=== PATIENT | female | born 1975 | race American Indian/Alaskan Native ===

== ENCOUNTER 2017-08-03 12:11 | Emergency (ER) | payer SELFPAY ==
[2017-08-03 13:09] LABS: Basophils % (Auto) 1.3 % (0.0-1.8); Eosinophils % (Auto) 2.3 % (0.0-4.3); Hematocrit 27.3 % (30.3-42.9); Hemoglobin 8.4 gm/dl (10.1-14.3); Mean Corpuscular HGB Conc 31 % (30-34); Mean Corpuscular Hemoglobin 22 pg (28-32); Mean Corpuscular Volume 71 fl (79-97); Platelet Count 334 K/mm3 (140-440); Red Blood Count 3.84 M/mm3 (3.65-5.03); Red Cell Distribution Width 17.1 % (13.2-15.2); White Blood Count 7.2 K/mm3 (4.5-11.0)
[2017-08-03 13:18] LABS: INR 0.95 (0.87-1.13)
[2017-08-03 13:26] LABS: Alanine Aminotransferase 8 units/L (7-56); Albumin 3.7 g/dL (3.9-5); Albumin/Globulin Ratio 1.1 %; Alkaline Phosphatase 52 units/L (35-129); Anion Gap 15 mmol/L; BUN/Creatinine Ratio 12.85; Blood Urea Nitrogen 9 mg/dL (7-17); Calcium 8.6 mg/dL (8.4-10.2); Carbon Dioxide 24 mmol/L (22-30); Glucose 99 mg/dL (65-100); Potassium 3.7 mmol/L (3.6-5.0); Sodium 138 mmol/L (137-145); Total Protein 7.1 g/dL (6.3-8.2)
[2017-08-03 20:03] VITALS: BP 127/56
--- NOTE | 2017-08-03 20:44 | Emergency Department Report ---
HPI - General Chief Complaint: Recheck/Abnormal Lab/Rx Time Seen by Provider: 08/03/17 20:22 - HPI HPI: This is a 42-year-old [place] female presents to the emergency department after she was sent in by her primary care clinic secondary to low hemoglobin/ anemia. She presents with some lab work done from the end of last month that showed her to have a hemoglobin of 8.7. The patient says that she does have some history of anemia in the past. She also has a history of HIV. She denies any chest pain, shortness of breath, headache, fever, weakness and only has a complaint of some occasional fatigue. She has not been taking anything for the anemia or her symptoms. She says that she does have a history of fibroids and is not currently bleeding but when she has her menstrual cycle she tends to have heavier bleeding at that time. ED Past Medical Hx - Past Medical History Previous Medical History?: Yes Additional medical history: HIV - Surgical History Additional Surgical History: - Social History Smoking Status: Never Smoker Substance Use Type: None - Medications Home Medications: Home Medications Medication Instructions Recorded Confirmed Last Taken Type Ferrous Sulfate [Feosol 325 MG tab] 325 mg PO BID #60 tablet 08/03/17 Unknown Rx ED Review of Systems ROS: Stated complaint: HEMONGLOBIN LOW Other details as noted in HPI Comment: All other systems reviewed and negative Constitutional: denies: chills, fever Eyes: denies: eye pain, eye discharge, vision change ENT: denies: ear pain, throat pain Respiratory: denies: cough, shortness of breath, wheezing Cardiovascular: denies: chest pain, palpitations Gastrointestinal: denies: abdominal pain, nausea, diarrhea Genitourinary: denies: urgency, dysuria, discharge Musculoskeletal: denies: back pain, joint swelling, arthralgia Skin: denies: rash, lesions Neurological: denies: headache, weakness, paresthesias Physical Exam - Physical Exam Vital Signs: Vital Signs 08/03/17 08/03/17 12:28 20:00 Temperature 97 F L 98.3 F Pulse Rate 77 74 Respiratory 20 18 Rate Blood Pressure 150/79 Blood Pressure 127/56 [Right] O2 Sat by Pulse 98 99 Oximetry Physical Exam: GENERAL: The patient is well-developed well-nourished. HENT: Normocephalic. Atraumatic. Patient has moist mucous membranes. EYES: Extraocular motions are intact. Pupils equal reactive to light bilaterally. NECK: Supple. Trachea is midline. CHEST/LUNGS: Clear to auscultation. There is no respiratory distress noted. HEART/CARDIOVASCULAR: Regular. There is no tachycardia. There is no gallop rub or murmur. ABDOMEN: Abdomen is soft, nontender. Patient has normal bowel sounds. There is no abdominal distention. SKIN: There is no rash. There is no edema. There is no diaphoresis. NEURO: The patient is awake, alert, and oriented. The patient is cooperative. The patient has no focal neurologic deficits. The patient has normal speech. MUSCULOSKELETAL: There is no tenderness or deformity. There is no limitation range of motion. There is no evidence of acute injury. Radial pulses +2 over 4 bilaterally. Cap refill less than 2 seconds. ED Course Vital Signs 08/03/17 08/03/17 12:28 20:00 Temperature 97 F L 98.3 F Pulse Rate 77 74 Respiratory 20 18 Rate Blood Pressure 150/79 Blood Pressure 127/56 [Right] O2 Sat by Pulse 98 99 Oximetry ED Medical Decision Making - Lab Data Result diagrams: 08/03/17 12:46 08/03/17 12:46 - Medical Decision Making 42-year-old female presents after being sent in for anemia. Her hemoglobin is at 8.7 which doesn't fact show anemia and it is microcytic and most likely iron deficiency with some component of blood loss from menorrhagia, although not currently bleeding. Vital signs stable. She does not have any complaints of chest pain, shortness of breath or any weakness or neurological deficits. She will be started on iron pills and encouraged to follow-up with her PCP. She is also been encouraged to follow up with an [employer] regarding her fibroids. She will return to the ER with any worsening symptoms or any acute distress. - Differential Diagnosis iron deficiency anemia, blood loss anemia, B12 deficiency Critical Care Time: No Critical care attestation.: If time is entered above; I have spent that time in minutes in the direct care of this critically ill patient, excluding procedure time. ED Disposition Clinical Impression: Anemia Qualifiers: Anemia type: iron deficiency Iron deficiency anemia type: unspecified iron deficiency Qualified Code(s): D50.9 - Iron deficiency anemia, unspecified Disposition: OP ADMIT IP TO THIS HOSP Is pt being admited?: Yes Condition: Stable Instructions: Iron Rich Diet (ED), Iron Deficiency Anemia (ED), Anemia (ED) Additional Instructions: Please follow-up with your primary care physician regarding your anemia and you can tell them that your hemoglobin today was 8.7. I have started you on iron supplement pills. Sometimes these can be constipating and therefore you may need to get stool softeners and increase her oral rehydration. Return to the emergency department with any chest pain, shortness of breath, weakness or any acute distress. Prescriptions: Ferrous Sulfate [Feosol 325 MG tab] 325 mg PO BID #60 tablet Referrals: PRIMARY CARE, [Primary Care Provider] - 3-5 Days Time of Disposition: 20:45
== END 2017-08-03 21:01 | disposition admitted as inpatient to this hospital (09) ==
LOC: ED 12:11
DX: D50.9 Iron deficiency anemia, unspecified (principal)
CPT/HCPCS: 36415; 80053; 85025; 85610; 99283; 99285